=== PATIENT | male | born 2005 | race Two or more races ===

== ENCOUNTER 2023-05-06 22:51 | Inpatient (IN) | payer MEDICAID, OTHER ==
[~2023-05-06] VITALS: Ht 180.3 cm; Wt 70.0 kg
[2023-05-07] VITALS (10 sets, daily range): BP systolic 108–112; BP diastolic 69–72; PULSE 60–104; RESP 17–19; TEMP 97.7–98.4; O2SAT 96–100
[2023-05-07 00:57] LABS: Basophils # (auto) 0.1 10 ^3/uL (0-0.2); Basophils % (auto) 0.6 % (0.0-2.0); Eosinophils # (auto) 0 10 ^3/uL (0-0.8); Eosinophils % (auto) 0.2 % (0.0-7.0); Hematocrit 44.8 % (41.0-53.0); Hemoglobin 14.8 g/dL (13.5-17.5); Lymphocytes % (auto) 7.1 % (10.0-50.0); Mean Corpuscular Hemoglobin 29.7 pg (28.0-32.0); Mean Corpuscular Hgb Conc. 32.9 g/dL (32.0-36.0); Mean Corpuscular Volume 90.3 fL (80.0-100.0); Monocytes # (auto) 0.4 10 ^3/uL (0-1.3); Monocytes % (auto) 3.2 % (0.0-12.0); Neutrophils % (auto) 88.9 % (37.0-80.0); Nucleated Red Blood Cells % 0.1 %; Red Blood Cells 4.96 10^6/uL (4.5-5.90); Red Cell Distribution Width 13.3 % (11.8-14.3); White Blood Cell 13.5 10^3/uL (4.4-10.8)
[2023-05-07 01:14] LABS: Alanine Aminotransferase 16 U/L (7-40); Alkaline Phosphatase 64 U/L (46-116); Anion Gap 7 (5-15); Aspartate Aminotransferase 16 U/L (13-40); BUN/Creatinine Ratio 6.7 (10.0-20.0); Blood Urea Nitrogen 7 mg/dL (9-23); Calcium 9.7 mg/dL (8.7-10.4); Carbon Dioxide 26 mmol/L (20-30); Chloride 104 mmol/L (98-107); Glucose 101 mg/dL (74-106); Lipase 48 U/L (12-53); Sodium 137 mmol/L (136-145)
[2023-05-07 01:15] LABS: Bilirubin, Total 0.7 mg/dL (0.2-1.0); Total Protein 8.4 g/dL (5.7-8.2)
[2023-05-07] MEDS ORDERED: ONDANSETRON HCL 4 MG/2 ML VIAL IV PRN ×2 (02:45→10:15)
[2023-05-07 03:58] LABS: INR 1.12 (0.9-1.15); Partial Thromboplastin Time 34.5 SEC (24.5-34.5); Prothrombin Time 11.7 sec (9.3-11.8)
[2023-05-07] MEDS: SODIUM CHLORIDE 0.9% 1,000 ML IV SCH (06:25)
[2023-05-07] MEDS: PIPERACILLIN-TAZOB 3.375GM 100 ML IV ONE (06:26)
[2023-05-07] MEDS ORDERED: fentaNYL CITRATE 100 MCG/2 ML VL ONE (09:02)
[2023-05-07] MEDS ORDERED: MIDAZOLAM HCL 2MG/2ML 2ml VIAL (1mg/ml) ONE (09:02)
[2023-05-07] MEDS ORDERED: MEPERIDINE HCL (50 MG/ML) 1 ML VIAL ONE (09:02)
[2023-05-07] MEDS ORDERED: DexAMETHasone SOD PHOS 10MG/1ML VIAL INJ ONE (09:03)
[2023-05-07] MEDS ORDERED: PROPOFOL 10 MG/ML 20 ML IV ONE (09:03)
[2023-05-07] MEDS: metroNIDAZOLE 500MG/100ML 100 ML IV ONE (09:24)
[2023-05-07] MEDS ORDERED: PIPERACILLIN-TAZOB 3.375GM 100 ML IV SCH (10:00)
[2023-05-07] MEDS ORDERED: ePHEDrine SULFATE 50 MG/ML AMP IV PRN (10:15)
[2023-05-07] MEDS ORDERED: METOCLOPRAMIDE HCL 5MG/ml INJ 2ml VIAL IV PRN (10:15)
[2023-05-07] MEDS ORDERED: HYDROmorphone HCL 2 MG/ML VL/or syr IV PRN (10:15)
[2023-05-07] MEDS ORDERED: LABETALOL HCL 5 MG/ML 4ML SYRINGE IV PRN (10:15)
[2023-05-07] MEDS ORDERED: MORPHINE SULFATE 4 MG/ML SYR/VIAL IV PRN (10:15)
[2023-05-07] MEDS ORDERED: MIDAZOLAM HCL 2MG/2ML 2ml VIAL (1mg/ml) IV PRN (10:15)
[2023-05-07] MEDS: BUPIVACAINE 0.25% INJ 50ML VIAL ONE (10:16)
[2023-05-07] MEDS: LIDOCAINE W/ EPINEPHRINE 2% INJ 20ML VIAL ONE (10:16)
[2023-05-07] MEDS: ceFAZolin 1GM/50ML 50 ML IV SCH (13:07)
[2023-05-07] MEDS: D5W/SOD CHL 0.45%/KCL 20MEQ 1,000 ML IV SCH (13:09)
[2023-05-07] MEDS: ONDANSETRON HCL 4 MG/2 ML VIAL IV PRN (13:46)
[2023-05-07] MEDS: MORPHINE SULFATE INJ 2 MG/ml SYRG IV PRN (13:47)
[2023-05-07] MEDS: metroNIDAZOLE 500MG/100ML 100 ML IV SCH (13:56)
[2023-05-07] MEDS: HYDROcodone-ACET 5/325MG TAB PO PRN (15:44)
[2023-05-07 16:46] LABS: Urine Bacteria NONE SEEN /hpf (None Seen); Urine Blood Negative /uL (Negative); Urine Clarity Clear (Clear); Urine Color Colorless (Yellow); Urine Protein, UAD Negative (Negative); Urine Urobilinogen Normal (Negative); Urine WBC <1 /hpf (0 - 3)
[2023-05-08] VITALS (7 sets, daily range): BP systolic 104–121; BP diastolic 62–77; PULSE 64–91; RESP 17–20; TEMP 98.4–101.8; O2SAT 97–98
[2023-05-08 06:07] LABS: Basophils # (auto) 0 10 ^3/uL (0-0.2); Basophils % (auto) 0.1 % (0.0-2.0); Eosinophils # (auto) 0 10 ^3/uL (0-0.8); Hematocrit 37.2 % (41.0-53.0); Hemoglobin 12.6 g/dL (13.5-17.5); Lymphocytes # (auto) 0.7 10 ^3/uL (0.4-5.4); Lymphocytes % (auto) 9.6 % (10.0-50.0); Mean Corpuscular Hemoglobin 30.5 pg (28.0-32.0); Mean Corpuscular Hgb Conc. 33.8 g/dL (32.0-36.0); Mean Corpuscular Volume 90.1 fL (80.0-100.0); Monocytes # (auto) 0.6 10 ^3/uL (0-1.3); Monocytes % (auto) 8.9 % (0.0-12.0); Neutrophils # (auto) 5.7 10 ^3/uL (1.6-8.6); Neutrophils % (auto) 81.4 % (37.0-80.0); Red Blood Cells 4.13 10^6/uL (4.5-5.90); Red Cell Distribution Width 13.1 % (11.8-14.3)
[2023-05-08 06:25] LABS: Alanine Aminotransferase 12 U/L (7-40); Albumin 4.1 g/dL (3.2-4.8); Alkaline Phosphatase 51 U/L (46-116); Anion Gap 9 (5-15); Aspartate Aminotransferase 18 U/L (13-40); BUN/Creatinine Ratio 6.1 (10.0-20.0); Blood Urea Nitrogen 6 mg/dL (9-23); Calcium 9.1 mg/dL (8.5-10.1); Carbon Dioxide 23 mmol/L (20-30); Chloride 107 mmol/L (98-107); Glucose 99 mg/dL (74-106); Sodium 139 mmol/L (136-145)
[2023-05-08 06:26] LABS: Bilirubin, Total 0.5 mg/dL (0.2-1.0); Total Protein 7.1 g/dL (5.7-8.2)
[2023-05-08] MEDS: PANTOPRAZOLE 40 MG/10 ML VIAL INJ IV SCH (09:05)
[2023-05-08] MEDS: ACETAMINOPHEN 325 MG TAB PO PRN (18:51)
[2023-05-09] VITALS (7 sets, daily range): BP systolic 111–131; BP diastolic 63–81; PULSE 65–90; RESP 16–20; TEMP 98.2–100.2; O2SAT 96–99
[2023-05-10 08:00] VITALS: BP 104/67; PULSE 55; RESP 20; TEMP 97.6; O2SAT 97
[2023-05-10 09:00] VITALS: BP 104/67; PULSE 55; RESP 20; TEMP 97.6; O2SAT 97
[2023-05-10 13:00] VITALS: BP 107/73; PULSE 76; RESP 20; TEMP 97.3; O2SAT 98
[2023-05-10] MEDS ORDERED: DOCU-265 PO (13:19)
[2023-05-10] MEDS ORDERED: NAPR-746 PO (13:19)
[2023-05-10] MEDS ORDERED: CEPH250C PO (13:19)
[2023-05-10 15:05] VITALS: BP 107/73; PULSE 76; RESP 18; TEMP 36.3; O2SAT 98
== END 2023-05-10 16:03 | disposition home or self-care (01) | DRG 710 ==
LOC: ER 22:51 → OVERFLOW 05-07 02:45 → WEST WING 05-07 13:03
PROVIDERS: ADMIT Nurse Practitioner; ATTEND Internal Medicine
PROC: 0DTJ4ZZ Resection of Appendix, Percutaneous Endoscopic Approach (ICD-10-PCS; principal; 2023-05-07 09:24)
DX: A41.9 Sepsis, unspecified organism (principal); K35.80 Unspecified acute appendicitis
CPT/HCPCS: 36415; 74176; 80053; 81001; 83690; 85025; 85610; 85730; 86850; 86900; 86901; C9113; G0378; J1100; J2250; J2405; J2543; J2704; J3490